=== PATIENT | female | born 1970 | race Caucasian/White ===

== ENCOUNTER 2018-09-04 14:46 | Emergency (ER) | payer BC ==
[2018-09-04 15:26] LABS: BASOPHILS % (AUTO) 0.1 % (0.0-5.0); HEMATOCRIT 38.1 % (36-48); MEAN CORPUSCULAR HEMOGLOBIN 25.2 pg (27.0-33.0); MEAN CORPUSCULAR HGB CONC 33.1 g/dL (32.0-36.0); MEAN CORPUSCULAR VOLUME 76.1 fL (79-99); MONOCYTES % (AUTO) 7.1 % (3.0-13.0); NEUTROPHILS % (AUTO) 59.8 % (40.0-77.0); PLATELET COUNT (AUTO) 340 K/uL (130-400); RED CELL DISTRIBUTION WIDTH 19.9 % (11.0-15.5); WHITE BLOOD COUNT (AUTO) 7.7 K/uL (4.8-10.8)
[2018-09-04 15:30] LABS: CREATININE 0.9 mg/dL (0.5-1.5); INR 0.95 (0.85-1.15); PARTIAL THROMBOPLASTIN TIME 27.3 SEC (26.3-35.5)
[2018-09-04 15:35] LABS: ALBUMIN 3.5 g/dL (3.5-5.0); BILIRUBIN,TOTAL 0.2 mg/dL (0.2-1.0); TOTAL PROTEIN, SERUM 7.4 g/dL (6.0-8.3)
[2018-09-04] MEDS ORDERED: MAG HYDROX/AL HYDROX/SIMETH ES 30 ML SUSP UDCUP ONE (15:44)
[2018-09-04] MEDS ORDERED: ONDANSETRON HCL 4 MG/2 ML VIAL ONE (15:44)
[2018-09-04] MEDS ORDERED: LIDOCAINE HCL 2% VISCOUS 15 ML UDCUP ONE (15:44)
[2018-09-04] MEDS ORDERED: ACETAMINOPHEN 325 MG TAB ONE (17:00)
[2018-09-04 18:00] LABS: APPEARANCE,URINE Clear (CLEAR); BILIRUBIN,URINE Negative (NEGATIVE); COLOR,URINE Yellow (YELLOW); GLUCOSE, URINE (UA) Negative (NEGATIVE); KETONES,URINE Negative (NEGATIVE); LEUKOCYTE ESTERASE ,URINE Moderate (NEGATIVE); NITRATE,URINE Negative (NEGATIVE); OCCULT BLOOD,URINE Negative (NEGATIVE); PH,URINE 7.5 (5.0-8.0); PROTEIN,URINE Negative (NEGATIVE); UROBILINOGEN,URINE 0.2 mg/dL (0.2-1.0)
[2018-09-04 18:07] LABS: AMPHET/METH SCREEN,URINE NEGATIVE (NEGATIVE); BARBITURATE SCREEN, URINE NEGATIVE (NEGATIVE); BENZODIAZEPINES SCREEN,URINE NEGATIVE (NEGATIVE); CANNABINOID SCREEN,URINE NEGATIVE (NEGATIVE); COCAINE SCREEN,URINE NEGATIVE (NEGATIVE); OPIATE SCREEN,URINE NEGATIVE (NEGATIVE); PHENCYCLIDINE SCREEN,URINE NEGATIVE (NEGATIVE)
[2018-09-04 18:14] LABS: MUCUS,URINE Rare LPF (None Seen)
[2018-09-04 18:16] LABS: RBC,URINE 0-1 /HPF (0-1)
[2018-09-04 18:22] LABS: BACTERIA,URINE Few /HPF (None Seen)
== END 2018-09-04 19:11 | disposition home or self-care (01) ==
LOC: EDH 14:46
DX: R07.89 Other chest pain (principal); R51 Headache; K21.9 Gastro-esophageal reflux disease without esophagitis; I10 Essential (primary) hypertension
CPT/HCPCS: 36415; 71046; 80053; 80305; 81001; 82550; 84484 ×2; 85025; 85610; 85730; 93005; 96374; 99285; J2405

== ENCOUNTER → 2019-04-08 | Outpatient (CLI) | payer OTHER | END | disposition home or self-care (01) | LOC: OIH 09:17 | PROVIDERS: ATTEND Internal Medicine Cardiovascular Disease | DX: Z13.6 Encounter for screening for cardiovascular disorders (principal); I25.10 Atherosclerotic heart disease of native coronary artery without angina pectoris | CPT/HCPCS: 75571 ==

== ENCOUNTER 2020-08-29 12:35 | Emergency (ER) | payer BC, OTHER ==
[~2020-08-29 12:35] MED LIST: LEVO150 PO; LOSA50TA64 PO
[2020-08-29] MEDS ORDERED: ASPIRIN 325 MG TABLET ONE (12:55)
[2020-08-29 13:01] LABS: HEMATOCRIT 43.8 % (36-48); LYMPHOCYTES % (AUTO) 35.4 % (21.0-51.0); MEAN CORPUSCULAR HEMOGLOBIN 27.3 pg (27.0-33.0); MEAN CORPUSCULAR HGB CONC 32.6 g/dL (32.0-36.0); MEAN CORPUSCULAR VOLUME 83.6 fL (79-99); MONOCYTES % (AUTO) 9.1 % (3.0-13.0); NEUTROPHILS % (AUTO) 54.8 % (40.0-77.0); PLATELET COUNT (AUTO) 303 K/uL (130-400); RED BLOOD CELL COUNT(AUTO) 5.24 MIL/uL (4.00-5.50); RED CELL DISTRIBUTION WIDTH 13.4 % (11.0-15.5); WHITE BLOOD COUNT (AUTO) 6.7 K/uL (4.8-10.8)
[2020-08-29 13:02] LABS: APPEARANCE,URINE Clear (CLEAR); BILIRUBIN,URINE Negative (NEGATIVE); COLOR,URINE Yellow (YELLOW); GLUCOSE, URINE (UA) Negative (NEGATIVE); KETONES,URINE Negative (NEGATIVE); LEUKOCYTE ESTERASE ,URINE Negative (NEGATIVE); NITRATE,URINE Negative (NEGATIVE); OCCULT BLOOD,URINE Negative (NEGATIVE); PROTEIN,URINE Negative (NEGATIVE)
[2020-08-29] MEDS ORDERED: NITROGLYCERIN 1GM/1 INCH PACKET TD ONE (13:04)
[2020-08-29 13:09] LABS: CREATININE 0.8 mg/dL (0.5-1.5); POTASSIUM 3.8 mmol/L (3.5-5.1)
[2020-08-29 13:18] LABS: ALBUMIN 3.4 g/dL (3.5-5.0); BILIRUBIN,TOTAL 0.2 mg/dL (0.2-1.0); TOTAL PROTEIN, SERUM 7.2 g/dL (6.0-8.3)
[2020-08-29 13:26] LABS: INR 0.95 (0.85-1.15); PARTIAL THROMBOPLASTIN TIME 24.1 SEC (26.3-35.5); PROTHROMBIN TIME 9.9 SEC (9.6-11.6)
== END 2020-08-29 15:39 | disposition left against medical advice (07) ==
LOC: EDH 12:35
DX: I24.9 Acute ischemic heart disease, unspecified (principal); K21.9 Gastro-esophageal reflux disease without esophagitis; I10 Essential (primary) hypertension; Z88.0 Allergy status to penicillin; Z88.8 Allergy status to other drugs, medicaments and biological substances
CPT/HCPCS: 36415; 71045; 80053; 81003; 82550; 84484; 85025; 85610; 85730; 93005

== ENCOUNTER 2020-11-16 12:44 | Emergency (ER) | payer OTHER ==
[~2020-11-16] VITALS: Ht 167.6 cm; Wt 81.6 kg
[2020-11-16 12:48] VITALS: BP 140/70
[2020-11-16] MEDS ORDERED: 0.9%NACL 1000ML 1,000 ML IV SCH (14:00)
[2020-11-16] MEDS ORDERED: PROMETHAZINE HCL 25 MG/ML 1ML AMPULE IM SCH (14:00)
[2020-11-16] MEDS ORDERED: KETOROLAC 30MG VIAL (30MG/ML) IV SCH (14:00)
[2020-11-16] MEDS ORDERED: CYCLOBENZAPRINE HCL 10 MG TABLET PO SCH (14:00)
[2020-11-16 14:01] VITALS: BP 144/82
[2020-11-16 14:17] LABS: BASOPHILS % (AUTO) 0.1 % (0.0-5.0); HEMATOCRIT 42.5 % (36-48); LYMPHOCYTES % (AUTO) 21.1 % (21.0-51.0); MEAN CORPUSCULAR HEMOGLOBIN 27.7 pg (27.0-33.0); MEAN CORPUSCULAR HGB CONC 33.2 g/dL (32.0-36.0); MEAN CORPUSCULAR VOLUME 83.5 fL (79-99); MONOCYTES % (AUTO) 5.2 % (3.0-13.0); PLATELET COUNT (AUTO) 315 K/uL (130-400); RED BLOOD CELL COUNT(AUTO) 5.09 MIL/uL (4.00-5.50); RED CELL DISTRIBUTION WIDTH 13.8 % (11.0-15.5); WHITE BLOOD COUNT (AUTO) 6.9 K/uL (4.8-10.8)
[2020-11-16 14:27] LABS: CREATININE 0.7 mg/dL (0.5-1.5); POTASSIUM 4.3 mmol/L (3.5-5.1)
[2020-11-16 14:32] LABS: ALBUMIN 3.5 g/dL (3.5-5.0); BILIRUBIN,TOTAL 0.3 mg/dL (0.2-1.0); TOTAL PROTEIN, SERUM 7.4 g/dL (6.0-8.3)
[2020-11-16] MEDS ORDERED: RIZA10TA23 PO (15:03)
[2020-11-16] MEDS ORDERED: NAPR-1180 PO (15:03)
[2020-11-16] MEDS ORDERED: CYCL10 PO (15:03)
[2020-11-16 15:10] VITALS: BP 142/78
== END 2020-11-16 15:25 | disposition home or self-care (01) ==
LOC: EDH 12:44
DX: G43.909 Migraine, unspecified, not intractable, without status migrainosus (principal); I10 Essential (primary) hypertension; R73.9 Hyperglycemia, unspecified; E03.9 Hypothyroidism, unspecified; Z88.0 Allergy status to penicillin; Z79.899 Other long term (current) drug therapy; Z95.0 Presence of cardiac pacemaker; Z98.890 Other specified postprocedural states
CPT/HCPCS: 36415; 70450; 80053; 85025; J1885; J2550; J7030

== ENCOUNTER 2024-12-28 11:45 | Emergency (ER) | payer BC ==
[~2024-12-28] VITALS: Ht 165.1 cm; Wt 72.6 kg
[~2024-12-28 11:45] MED LIST changes: +CYCL10TA16 PO; +NAPR-1180 PO; +RIZA-7 PO
[2024-12-28 11:47] VITALS: BP 118/80; PULSE 84; RESP 16; TEMP 97.9
[2024-12-28] MEDS ORDERED: HYDROcodone/APAP 5/325 1 TAB TABLET PO STA (11:57)
--- NOTE | 2024-12-28 13:43 | ERN ---
ED Note History of Present Illness Stated Complaint: LEFT ARM PAIN Chief Complaint: Arm Swelling/Redness Time Seen by MD: 11:47 Time Seen by Midlevel: 11:52 Dictation: 54-year-old female coming in with complaints of left forearm pain patient states it has been going on for two weeks. Patient states she already saw her PCP two weeks ago where they did not ultrasound they told her she had nodules and and they also did not x-ray nothing was shown. Patient states he received a steroid shot which helped and some pain medication. The patient states pain is bag. Denies any trauma. 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 Allergies: Coded Allergies: amoxicillin (Unverified Allergy, Severe, HIVES, 02/15/16) lansoprazole (Unverified Allergy, Severe, RASH, 02/15/16) Uncoded Allergies: doxygel (Allergy, Unknown, 02/15/16) Home Meds Active Scripts Cyclobenzaprine HCl (Flexeril) 10 Mg Tab, 10 MG PO BID, #30 TAB Prov:CAS GARCIA 11/16/20 Naproxen (Naprosyn) 500 Mg Tablet, 500 MG PO BIDPC, #60 TAB Prov:CAS GARCIA 11/16/20 Rizatriptan Benzoate (Maxalt Motor Racer) 10 Mg Tab.rapdis, 10 MG PO TID, #15 TAB Prov:CAS GARCIA 11/16/20 Reported Medications Losartan Potassium (Losartan Potassium) 50 Mg Tablet, 50 MG PO DAILY, TAB 02/27/20 Levothyroxine Sodium (Synthroid 150 Mcg Tab) 150 Mcg Tab, 150 MCG PO ACBKFST, TAB 02/27/20 Past Medical History Past Medical History: Diabetes-Type II, High Cholesterol, Heart Disease, Hypertension, Hypothyroid Surgical History: Pacer/AICD, Other Surgical History Other: LEFT SHOULDER ABD HERNIA THYROID Family History: Negative Social History: Negative History: Not Applicable Review of System Dictation Constitutional: Negative for fever,chills, and weight loss Eyes: Negative for injury, pain,redness, and discharge ENT: Negative for injury,pain or swelling Cardiovascular: Negative for chest pain, palpitations, and edema Respiratory: Negative for shortness of breath, cough, and wheezing, Abdomen/GI: Negative for abdominal pain, nausea, vomiting, diarrhea, and constipation Back: Negative for injury and pain : Negative for injury, bleeding and discharge MS/Extremity: Left forearm pain Skin: Negative for rash, and discoloration Neuro: Negative for headache, weakness, numbness, tingling, and seizure Psych: Negative for suicide ideation, homicidal ideation, and hallucinations Review of Systems: was completed Initial Vital Sign VS Vital Signs Date Time Temp Pulse Resp B/P (MAP) Pulse Ox O2 Delivery O2 Flow Rate FiO2 12/28/24 11:47 97.9 84 16 118/80 96 Room Air 0 Physical Exam Dictation General: awake, alert, NAD Head/Face: Normocephalic, atraumatic Eyes: PERRL, EOMI, vision at baseline ENT: oral cavity clear, TMs clear, no signs of infection Neck: Trachea midline, supple, no nuchal rigidity Cardiovascular: RRR, normal S1/S2, No MRGs, no JVD Respiratory: CTAB, no respiratory distress, No rales or wheezes Abdomen: Soft, non-tender, non-distended, normal bowel sounds, no guarding or rebound. Skin: Warm, dry, normal turgor, no rash MS/Extremity: Pulses equal, no cyanosis, neurovascular intact, FROM, pain when I rotate forearm. No obvious deformities. No redness, no streaking. Neuro: COAx4, GCS 15, strength 5/5, CN 2-12 intact, normal cerebellar exam, normal gait, Psych: Normal behavior, mood, and affect normal ED Course ED Course Orders Procedure Category Date Status Time Dexamethasone 4mg/Ml PHA 12/28/24 Complete 1ml Vial (Dexametha 11:57 Ketorolac PHA 12/28/24 Complete Tromethamine 15mg/Ml 11:57 Hydrocodone/Apap PHA 12/28/24 Complete 5/325 (Alden 5/325mg) 11:57 Current Medications Medications (Trade) Dose Ordered Sig/Real Route PRN Reason Start Time Stop Time Status Last Admin Dose Admin Acetaminophen/ Hydrocodone Bitart (NORco 5/325MG) 1 tab ONCE STAT PO 12/28/24 11:57 12/28/24 12:00 DC Dexamethasone Sodium Phosphate (dexaMETHasone 4MG/ML 1ML VIAL) 6 mg ONCE STAT IM 12/28/24 11:57 12/28/24 12:00 DC Ketorolac Tromethamine (toRADol) 15 mg ONCE STAT IM 12/28/24 11:57 12/28/24 12:00 DC Vital Signs Date Time Temp Pulse Resp B/P (MAP) Pulse Ox O2 Delivery O2 Flow Rate FiO2 12/28/24 11:47 97.9 84 16 118/80 96 Room Air 0 Medical Decision Making MDM 54-year-old female coming in with complaints of left forearm pain patient states it has been going on for two weeks. Patient states she already saw her PCP two weeks ago where they did not ultrasound they told her she had nodules and and they also did not x-ray nothing was shown. Patient states he received a steroid shot which helped and some pain medication. The patient states pain is bag. De nies any trauma. 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 Patient denies any shortness a breath, recent traumas, smoking, history of cancer. We will give pain medication and reassess. At 1228 p.m. patient eloped from emergency room. Notified by triage nurse. DX & DISP Disposition: Other(Comment) Departure Impression: Primary Impression: Eloped from emergency department Condition: Stable Referrals: WE[facility] HAWKINS MD (PCP) Time of Disposition: 12:28 I have reviewed the case, and I agree with, Diagnosis and Plan TORIN FALL NP Dec 28, 2024 13:43
== END 2024-12-28 12:28 | disposition left against medical advice (07) ==
LOC: EDH 11:45
DX: M79.602 Pain in left arm (principal); E03.9 Hypothyroidism, unspecified; E11.9 Type 2 diabetes mellitus without complications; E78.00 Pure hypercholesterolemia, unspecified; I10 Essential (primary) hypertension; Z79.899 Other long term (current) drug therapy; Z88.0 Allergy status to penicillin; Z95.810 Presence of automatic (implantable) cardiac defibrillator
CPT/HCPCS: 99281; 99282

== ENCOUNTER 2025-05-08 18:00 | Emergency (ER) | payer BC ==
[~2025-05-08] VITALS: Ht 167.6 cm; Wt 77.1 kg
[2025-05-08 18:01] VITALS: TEMP 97.9
--- NOTE | 2025-05-08 18:21 | EKG ---
[facility] Test Date: 2025-05-08 Test Time: 17:25:46 Pat Name: JUVE FINE Department: 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
[2025-05-08 18:40] LABS: IMMATURE GRANULOCYTE ABSOLUTE 0.04 K/uL (0-1); NUCLEATED RED BLOOD CELLS 0.0 % (0.0-0.19); PLATELET COUNT (AUTO) 289 K/uL (130-400); RED BLOOD CELL COUNT(AUTO) 5.17 MIL/uL (4.00-5.50); RED CELL DISTRIBUTION WIDTH 13.9 % (11.0-15.5); WHITE BLOOD COUNT (AUTO) 8.4 K/uL (4.8-10.8)
[2025-05-08 18:49] VITALS: BP 125/77; PULSE 68; RESP 19; O2SAT 98
--- NOTE | 2025-05-08 18:59 | NUR ---
Note undone in ED - 05/08/25 at 1904 by LAKSHMI PT CALLED OUT X3 TIMES AND NO ANSWER. SEARCHED ED LOBBY,RESTROOM,AND PARKING AREA. PER REGISTRATION PT WAS UPSET DUE TO LONG WAIT AND SEEN LEAVING THE PREMISES. NO IV IN PLACE.
--- NOTE | 2025-05-08 19:04 | NUR ---
DOCUMENTED DEPARTURE ON WRONG PT
[2025-05-08 19:09] LABS: CREATININE 0.9 mg/dL (0.5-1.0); GLOMERULAR FILTR. RATE CALC 75.0 mL/min (>90); GLUCOSE,RANDOM 134.0 mg/dL (70-105); SODIUM SERUM 137.0 mmol/L (136-145); UREA NITROGEN, BLOOD 19.0 mg/dL (7-18)
--- NOTE | 2025-05-08 19:29 | ERN ---
ED Note History of Present Illness Stated Complaint: CHEST PAIN Chief Complaint: Chest Pain Time Seen by MD: 19:06 Dictation: 55-year-old female with a past medical history of hypertension, cardiac arrhythmia with a defibrillator in place who presented to the ER complaining of diaphoresis, dizziness, shortness breath. States that her symptoms started today in the afternoon. Patient stated that her blood pressure was systolic in the 80s, diastolic in the 50s. She has been drinking enough amount of water to keep her hydrated. She does take losartan for BP and last dose was in the morning.. She denies abdominal pain, diarrhea. Allergies: Coded Allergies: amoxicillin (Unverified Allergy, Severe, HIVES, 02/15/16) lansoprazole (Unverified Allergy, Severe, RASH, 02/15/16) Uncoded Allergies: doxygel (Allergy, Unknown, 02/15/16) Home Meds Active Scripts Cyclobenzaprine HCl (Flexeril) 10 Mg Tab, 10 MG PO BID, #30 TAB Prov:CAS GARCIA 11/16/20 Naproxen (Naprosyn) 500 Mg Tablet, 500 MG PO BIDPC, #60 TAB Prov:CAS GARCIA 11/16/20 Rizatriptan Benzoate (Maxalt Accounting Systems Manager) 10 Mg Tab.rapdis, 10 MG PO TID, #15 TAB Prov:CAS GARCIA 11/16/20 Reported Medications Losartan Potassium (Losartan Potassium) 50 Mg Tablet, 50 MG PO DAILY, TAB 02/27/20 Levothyroxine Sodium (Synthroid 150 Mcg Tab) 150 Mcg Tab, 150 MCG PO ACBKFST, TAB 02/27/20 Past Medical History Past Medical History: Diabetes-Type II, High Cholesterol, Heart Disease, Hypertension, Hypothyroid Additional Past Medical Hx: Pacemaker placement Surgical History: Pacer/AICD, Other Surgical History Other: LEFT SHOULDER ABD HERNIA THYROID Family History: Negative Social History: Negative History: Not Applicable Review of System Dictation NEGATIVE EXCEPT PER HPI Constitutional: Negative for fever,chills, and weight loss, reports fatigue Eyes: Negative for injury, pain,redness, and discharge ENT: Negative for injury,pain or swelling Cardiovascular: denies chest pain, palpitations, and edema Respiratory: Reports shortness breath Abdomen/GI: Negative for abdominal pain, nausea, vomiting, diarrhea, and constipation Back: Negative for injury and pain : Negative for injury, bleeding and discharge MS/Extremity: Negative for injury and deformity Skin: Negative for rash, and discoloration Neuro: Reports dizziness Psych: Negative for suicide ideation, homicidal ideation, and hallucinations Initial Vital Sign VS Vital Signs Date Time Temp Pulse Resp B/P (MAP) Pulse Ox O2 Delivery O2 Flow Rate FiO2 05/08/25 18:01 97.9 72 20 139/83 99 Room Air 05/08/25 18:49 0 21 Physical Exam Dictation General: awake, alert, NAD Head/Face: Normocephalic, atraumatic Eyes: PERRL, EOMI, vision at baseline ENT: oral cavity clear, TMs clear, no signs of infection Neck: Trachea midline, supple, no nuchal rigidity Cardiovascular: RRR, normal S1/S2, No MRGs, no JVD Respiratory: CTAB, no respiratory distress, No rales or wheezes Abdomen: Soft , no tender Skin: Warm, dry, normal turgor, no rash MS/Extremity: Pulses equal, no cyanosis, neurovascular intact, FROM Neuro: COAx4, GCS 15, strength 5/5, CN 2-12 intact, normal cerebellar exam, normal gait, Psych: Normal behavior, mood, and affect normal Results (Laboratory/Radiology) Laboratory/Radiology Laboratory Tests Test 05/08/25 18:30 White Blood Count 8.4 K/uL (4.8-10.8) Red Blood Count 5.17 MIL/uL (4.00-5.50) Hemoglobin 15.2 g/dL (12.0-16.0) Hematocrit 45.5 % (36-48) Mean Corpuscular Volume 88.0 fL (79-99) Mean Corpuscular Hemoglobin 29.4 pg (27.0-33.0) Mean Corpuscular Hemoglobin Concent 33.4 g/dL (32.0-36.0) Red Cell Distribution Width 13.9 % (11.0-15.5) Platelet Count 289 K/uL (130-400) Mean Platelet Volume 9.6 fL (7.5-10.5) Immature Granulocyte % (Auto) 0.5 % (0-1) Neutrophils (%) (Auto) 73.1 % (40.0-77.0) Lymphocytes (%) (Auto) 20.7 % (21.0-51.0) L Monocytes (%) (Auto) 5.6 % (3.0-13.0) Eosinophils (%) (Auto) 0.0 % (0.0-8.0) Basophils (%) (Auto) 0.1 % (0.0-5.0) Neutrophils # (Auto) 6.1 K/uL (1.8-7.7) Lymphocytes # (Auto) 1.7 K/uL (1.0-4.8) Monocytes # (Auto) 0.5 K/uL (0.1-1.0) Eosinophils # (Auto) 0.00 K/uL (0.00-0.70) Basophils # (Auto) 0.01 K/uL (0.00-0.20) Absolute Immature Granulocyte (auto 0.04 K/uL (0-1) Nucleated Red Blood Cells 0.0 % (0.0-0.19) Sodium Level 137 mmol/L (136-145) Potassium Level 4.0 mmol/L (3.5-5.1) Chloride Level 102 mmol/L (101-111) Carbon Dioxide Level 27 mmol/L (21-32) Blood Urea Nitrogen 19 mg/dL (7-18) H Creatinine 0.9 mg/dL (0.5-1.0) Glomerular Filtration Rate Calc 75 mL/min (>90) Random Glucose 134 mg/dL (70-105) H Total Calcium 8.9 mg/dL (8.5-10.1) Troponin I High Sensitivity 4 ng/L (4-50) ED Course ED Course Orders Procedure Category Date Status Time Vital Signs Per CPOE 05/08/25 Transmitted Routine 18:09 Chest 1vw RAD 05/08/25 Resulted 18:09 12 Lead Ekg Tracing- EKG 05/08/25 Complete Technical 18:09 Oxygen By Nc/Pulse Ox CPOE 05/08/25 Transmitted 18:09 Maintain Iv CPOE 05/08/25 Transmitted 18:09 Iv Insertion CPOE 05/08/25 Transmitted 18:09 Cardiac Monitoring CPOE 05/08/25 Transmitted 18:09 Pulse Oximetry With CPOE 05/08/25 Transmitted Vs And Prn 18:09 Cbc With Differential LAB 05/08/25 Complete 18:09 Activity: Br W/Brp CPOE 05/08/25 Transmitted With Assist 18:09 Troponin I High LAB 05/08/25 Complete Sensitivity 18:09 Urinalysis Profile LAB 05/08/25 Logged 18:09 Basic Metabolic Panel LAB 05/08/25 Complete 18:09 Influenza Type A & B, LAB 05/08/25 Logged Rapid 19:21 Covid19 (Sars Antigen LAB 05/08/25 Logged Rapid) 19:21 Vital Signs Date Time Temp Pulse Resp B/P (MAP) Pulse Ox O2 Delivery O2 Flow Rate FiO2 05/08/25 18:49 68 19 125/77 98 Room Air* 0 21 05/08/25 18:01 97.9 72 20 139/83 99 Room Air Medical Decision Making MDM 55-year-old female with a past medical history of hypertension, cardiac arrhythmia with a defibrillator in place who presented to the ER complaining of diaphoresis, dizziness, shortness breath. States that her symptoms started today in the afternoon. Patient stated that her blood pressure was systolic in the 80s, diastolic in the 50s. She has been drinking enough amount of water to keep her hydrated. She does take losartan for BP and last dose was in the morning.. She denies abdominal pain, diarrhea. Vital signs was within normal limits at our facility. With a systolic 120s, diastolic in the 80s. Workup for cardiac arrhythmia Workup for hypotension Viral syndrome workup Cardiac was negative including troponin level CXR normal limits Ordered Flu and UA , pt she will leaving she does not want started to be performed. EXAM: CR Chest, 1 View. CLINICAL HISTORY: CHEST PAIN COMPARISON: None provided. FINDINGS: LUNGS: There is no mass, infiltrate, or acute pulmonary abnormality. PLEURAL SPACES: No pleural effusion or pneumothorax. MEDIASTINUM: Pacemaker leads are in satisfactory positions. The cardiomediastinal silhouette is within normal limits. BONES: No aggressive appearing osseous lesion seen. IMPRESSION: No acute cardiopulmonary pathology is evident. DX & DISP Disposition: Discharge Decision to Admit Date: May 08, 2025 Departure Impression: Primary Impression: Dizziness Additional Impressions: Hypotension, Viral syndrome Condition: Stable Additional Instructions: RETURN TO ER FOR ANY ACUTE OR WORSENING SYMPTOMS. FOLLOW-UP IN 1-2 DAYS WITH PRIMARY PROVIDER FOR RECHECK OF TODAY'S SYMPTOMS. Referrals: [facility] MD (PCP) WILLEM MAGUIRE MD May 08, 2025 19:29
--- NOTE | 2025-05-08 20:04 | HMCIMG ---
EXAM: CR Chest, 1 View. CLINICAL HISTORY: CHEST PAIN COMPARISON: None provided. FINDINGS: LUNGS: There is no mass, infiltrate, or acute pulmonary abnormality. PLEURAL SPACES: No pleural effusion or pneumothorax. MEDIASTINUM: Pacemaker leads are in satisfactory positions. The cardiomediastinal silhouette is within normal limits. BONES: No aggressive appearing osseous lesion seen. IMPRESSION: No acute cardiopulmonary pathology is evident. /[place]
--- NOTE | 2025-05-08 20:21 | NUR ---
PT EATING FOOD THAT WAS DELIVERED WITH NO ISSUES. TOLERATING WELL.
--- NOTE | 2025-05-08 20:49 | NUR ---
PATIENT DISCHARGED, D/C INSTRUCTIONS PROVIDED AND REINFORCED VIA FEEDBACK; PATIENT IN NO DISTRESS AT THIS TIME AND IS AMBULATORY. ACCOMPANIED TO DISCHARGE EXIT. IV STOP TIMES VERFIED.
== END 2025-05-08 20:49 | disposition home or self-care (01) ==
LOC: EDH 18:00
DX: B34.9 Viral infection, unspecified (principal); I95.9 Hypotension, unspecified; R42 Dizziness and giddiness; E11.9 Type 2 diabetes mellitus without complications; E03.9 Hypothyroidism, unspecified; E78.00 Pure hypercholesterolemia, unspecified; I11.9 Hypertensive heart disease without heart failure; Z88.0 Allergy status to penicillin; Z79.899 Other long term (current) drug therapy; Z95.810 Presence of automatic (implantable) cardiac defibrillator
CPT/HCPCS: 36415; 71045; 80048; 84484; 85025; 93005; 99284